=== PATIENT | female | born 1940 | race Caucasian/White ===

== ENCOUNTER → 2017-02-04 | Day surgery (SDC) | payer OTHER ==
[~2017-02-04] MED LIST: ACET-1138 PO; ASPEC325 PO; AcetaZOLAMIDE 250 MG TAB PO SCH; BETAXOLOL HCL 0.25% OP SUSP PER DROP CHARGE OPR SCH; CALC-342 PO; CRS10 PO; CYCLOPENTOLATE HCL 1% OP SOLN PER DROP CHARGE OPR SCH; HYDR25TA4 PO; LACTATED RINGER'S 1000ML 500 ML IV SCH; LIDOCAINE 4% OP SOLN DROP CHARGE OPR SCH; LISI20TA3 PO; LPR25 PO; MOXIFLOXACIN OPH SOLN PER DROP CHARGE OPR SCH; NCYSR50 PO; PHENYLEPHRINE HCL 2.5% OP SOLN PER DROP CHARGE OPR SCH; POTA10CA28 PO; PROPARACAINE 0.5% OP SOLN PER DROP CHARGE OPR SCH; RXC5 PO; TROPICAMIDE 1% OP SOLN PER DROP CHARGE OPR SCH; VENL-271 PO
== END | disposition home or self-care (01) ==
LOC: EDSTATUS 07:30 → C.PAT 13:33
PROVIDERS: ATTEND Specialist
DX: H26.9 Unspecified cataract (principal)